=== PATIENT | female | born 1960 | race Caucasian/White ===

== ENCOUNTER 2018-05-07 23:47 | Emergency (ER) | payer MEDICAID ==
[~2018-05-07] VITALS: Ht 160 cm; Wt 61.9 kg
[~2018-05-07 23:47] MED LIST: IBUP200C11
[2018-05-07 23:56] VITALS: Ht 160 cm; Wt 61.9 kg
[2018-05-08] MEDS ORDERED: ONDANSETRON (ODT) 4 MG TAB ODT STA (05:08)
[2018-05-08] MEDS ORDERED: HYDROCODONE/APAP (10/325) TAB PO ONE (05:30)
[2018-05-08] MEDS ORDERED: KETOROLAC 30 MG INJ IM STA (06:19)
[2018-05-08 07:00] VITALS: BP 102/68; PULSE 61; RESP 14
[2018-05-08] MEDS ORDERED: IBUP-1542 PO (07:16)
[2018-05-08] MEDS ORDERED: OXYC-279 PO (07:18)
--- NOTE | 2018-05-08 07:22 | ERD ---
ER Documentation Chief Complaint Chief Complaint FELL DOWN STAIRS, HEAD, SHOULDER, KNEE PAIN; DENIES MED HX HPI 58-year-old woman complains of pain swelling to the posterior right shoulder after falling backwards while walking up some steps. Episode was witnessed there was no LOC, no complaints of paresis or paresthesias, no chest pain or shortness of breath, no headache or blurry vision. ROS All systems reviewed and are negative except as per history of present illness. Medications Home Meds Active Scripts Oxycodone HCl/Acetaminophen (Percocet 5-325 mg Tablet) 1 Each Tablet, 1 EACH PO TID PRN for PAIN AND/OR INFLAMMATION, #12 TAB Prov:CHAPO PAGE MD 05/08/18 Ibuprofen* (Motrin*) 600 Mg Tab, 600 MG PO Q8 PRN for PAIN AND/OR INFLAMMATION, #30 TAB Prov:CHAPO PAGE MD 05/08/18 Reported Medications Ibuprofen* (Advil*) 200 Mg Capsule 08/14/10 Allergies Allergies: Coded Allergies: No Known Drug Allergies (Verified Allergy, Mild, 08/14/10) PMhx/Soc Medical and Surgical Hx: pt denies Medical Hx, pt denies Surgical Hx History of Surgery: No Anesthesia Reaction: No Hx Neurological Disorder: No Hx Respiratory Disorders: No Hx Cardiac Disorders: No Hx Psychiatric Problems: No Hx Miscellaneous Medical Probl: No Hx Alcohol Use: No Hx Substance Use: No Hx Tobacco Use: No Smoking Status: Never smoker Physical Exam Vitals Vital Signs Date Temp Pulse Resp B/P (MAP) Pulse Ox O2 O2 Flow FiO2 Time Delivery Rate 05/08/18 61 14 102/68 98 Room Air 07:00 (79) 05/08/18 63 16 95/73 (80) 100 Room Air 05:08 05/07/18 97.9 60 18 158/73 100 23:56 (101) Physical Exam Const: No acute distress, mild discomfort Head: Atraumatic Eyes: Normal Conjunctiva ENT: Normal External Ears, Nose and Mouth. Neck: Full range of motion. No meningismus. Resp: Clear to auscultation bilaterally Cardio: Regular rate and rhythm, no murmurs Abd: Soft, non tender, non distended. Normal bowel sounds Skin: No petechiae or rashes Back: No midline or flank tenderness Ext: Ecchymosis and hematoma to the right posterior shoulder without bony tenderness or deformity, patient has full range of motion actively and passively without difficulty. Distal pulses equal bilateral sensation to the axillary, median, ulnar, radial nerves intact and equal bilaterally Neur: Awake and alert x3, no focal deficits or facial asymmetry Psych: Normal Mood and Affect Results 24 hrs Current Medications Medications Dose Sig/Diana Start Time Status Last (Trade) Ordered Route PRN Stop Time Admin Dose Reason Admin 1 tab ONCE ONCE 05/08/18 DC 05/08/18 Acetaminophen PO 05:30 05/08/18 05:17 / 05:31 Hydrocodone Bitart ([place] (10/325)) Ondansetron 4 mg ONCE STAT 05/08/18 DC 05/08/18 HCl (Zofran ODT 05:08 05/08/18 05:18 Odt) 05:09 Ketorolac 30 mg ONCE STAT 05/08/18 DC Tromethamine IM 06:19 05/08/18 (Toradol) 06:22 Procedures/MDM I administered [place] 1 tablet p.o. for pain control. X-ray Shoulder 3V Interpreted by me: Bones: No fracture Joints: No dislocation Foreign body: None Chest X-ray 1V Interpreted by me: Soft Tissue: No acute abnormalities Bones: No acute abnormalities Mediastinum/Cardiac Silhouette/Lungs: No acute abnormalities CT scan of the head was negative for acute bleed mass or shift Patient's right upper extremity placed in a shoulder immobilizer for comfort and supportive measures. Splint Assessment: Neurovascularly intact post splint placement with good fit. Patient has full range of motion actively and passively, no signs or symptoms of dislocation or subluxation. Patient was instructed to follow-up with PMD she will be discharged with analgesia. Patient feels much better at this time, and vital signs are normal, symptoms have improved. I did give strict instructions to return to the ED if symptoms continue or worsen, patient will otherwise follow-up with primary care physician. Patient understood instructions and agreed to plan. Disclaimer: Inadvertent spelling and grammatical errors are likely due to EHR/dictation software use and do not reflect on the overall quality of patient care. Also, please note that the electronic time recorded on this note does not necessarily reflect the actual time of the patient encounter. Departure Diagnosis: Primary Impression: Shoulder sprain Encounter type: initial encounter Shoulder sprain type: unspecified sprain Laterality: right Qualified Codes: S43.401A - Unspecified sprain of right shoulder joint, initial encounter Additional Impression: Hematoma Condition: Good Patient Instructions: Hematoma, Shoulder Sprain CHAPO PAGE MD May 08, 2018 07:22
== END 2018-05-08 07:15 | disposition home or self-care (01) ==
LOC: E/R 23:47
DX: S43.401A Unspecified sprain of right shoulder joint, initial encounter (principal); R93.0 Abnormal findings on diagnostic imaging of skull and head, not elsewhere classified; W10.9XXA Fall (on) (from) unspecified stairs and steps, initial encounter; Y92.9 Unspecified place or not applicable
CPT/HCPCS: 70450; 71045; 73030; Z7502; Z7610; J1885